=== PATIENT | male | born 1980 | race Asian ===

== ENCOUNTER 2023-07-15 14:55 | Inpatient (IN) | payer OTHER ==
[2023-07-15 17:49] VITALS: BMI 20.9
[2023-07-15] MEDS ORDERED: hydrOXYzine PAMOATE 25 MG CAPSULE (FP) PO PRN (21:16)
[2023-07-15] MEDS ORDERED: MAGNESIUM HYDROX 2400MG/30ML ORAL SUSPENSION 30 ML CUP PO PRN (21:16)
[2023-07-15] MEDS ORDERED: ACETAMINOPHEN 325 MG TABLET (FP) PO PRN (21:16)
[2023-07-15] MEDS ORDERED: P-EPHED 60MG/TRIPROLIDI 2.5MG TABLET PO PRN (21:16)
[2023-07-15] MEDS ORDERED: MAG HYDROX/AL HYDROX/SIMETH 30 ML UNIT-DOSE CUP PO PRN (21:16)
[2023-07-15] MEDS ORDERED: COLLOIDAL OATMEAL 1 BAR EACH TP PRN (21:16)
[2023-07-15] MEDS ORDERED: LOPERAMIDE HCL 2 MG CAPSULE PO PRN (21:16)
[2023-07-15] MEDS ORDERED: NALOXONE HCL (KLOXXADO) 8 MG SPRAY NS PRN (21:16)
[2023-07-15] MEDS ORDERED: AMMONIUM LACTATE 12% LOTION 225 GM BOTTLE TP PRN (21:16)
[2023-07-15] MEDS ORDERED: guaiFENesin 600 MG TABLET.ER (FP) PO PRN (21:16)
[2023-07-15] MEDS ORDERED: POLYETHYLENE GLYCOL (HEALTHYLAX) 3350 17 GM PACKET PO PRN (21:16)
[2023-07-15] MEDS ORDERED: IBUPROFEN 400 MG TABLET (FP) PO PRN (21:16)
[2023-07-15] MEDS ORDERED: BENZOCAINE/MENTHOL (CHLORASEPTIC ) LOZENGE MM PRN (21:16)
[2023-07-15] MEDS ORDERED: BENZONATATE 200 MG CAPSULE PO PRN (21:16)
[2023-07-15] MEDS ORDERED: NALOXONE HCL 0.4 MG/ML VIAL IM PRN (21:16)
[2023-07-15] MEDS ORDERED: MELATONIN 5 MG TABLETS PO SCH (22:00)
[2023-07-15] MEDS ORDERED: MELATONIN 5 MG TABLETS ONE (22:53)
[2023-07-15] MEDS ORDERED: TUBERCULIN PPD 5 TU/0.1ML SYRINGE (IN PATIENT USE ONLY) ID ONE (23:55)
[2023-07-16] MEDS: THIAMINE HCL 100 MG TABLET (FP) PO SCH ×2 (07:16→21:08)
[2023-07-16] MEDS: LIDOCAINE PATCH REMOVAL MC SCH ×2 (07:17→21:09)
[2023-07-16] MEDS ORDERED: LIDOCAINE 5% TOPICAL PATCH TP SCH (10:00)
[2023-07-16] MEDS: PRENATAL VITAMINS W/ FOLIC ACID TABLET (FP) PO SCH (10:45)
[2023-07-16] MEDS ORDERED: methaDONE HCL 10 MG TABLET (FOR DETOX USE ONLY) ONE ×2 (12:00→12:04)
[2023-07-16] MEDS ORDERED: PRENATAL VITAMINS W/ FOLIC ACID TABLET (FP) PO ONE (12:00)
[2023-07-16] MEDS ORDERED: TUBERCULIN PPD 5 TU/0.1ML VIAL ID ONE (12:36)
[2023-07-16 13:52] LABS: HEMATOCRIT 33.8 % (35.4-49); HEMOGLOBIN 10.7 GM/dL (11.7-16.9); MCH 26.7 pg (25.7-33.7); MCHC 31.5 g/dl (32.0-35.9); MEAN CELL VOLUME 84.6 fl (80-96); MEAN PLT VOLUME 7.8 fl (7.5-11.1); PLATELET COUNT 336 10^3/uL (134-434); RBC 3.99 M/mm3 (4.00-5.60); RDW 17.2 % (11.9-15.9)
[2023-07-16 14:17] LABS: POTASSIUM 3.9 mmol/L (3.5-5.1)
[2023-07-16 14:31] LABS: CALCIUM 7.5 mg/dL (8.5-10.1)
[2023-07-16 14:32] LABS: ALBUMIN 2.5 g/dl (3.4-5.0); BLOOD UREA NITROGEN 11.2 mg/dL (7-18)
[2023-07-16 14:35] LABS: BILIRUBIN,TOTAL 0.2 mg/dL (0.2-1)
[2023-07-16 14:39] LABS: CREATININE 0.7 mg/dL (0.55-1.3); TOT PROT 5.7 g/dl (6.4-8.2)
[2023-07-16 15:16] LABS: SYPHILIS W/ RPR CONF NON-REACTIVE (NONREACTIVE)
[2023-07-16] MEDS: QUEtiapine FUMARATE 50 MG TABLET PO SCH (21:09)
[2023-07-16] MEDS: IBUPROFEN 600 MG TABLET (FP) PO PRN (21:12)
[2023-07-17] MEDS: LIDOCAINE 5% TOPICAL PATCH TP SCH (10:02)
[2023-07-17] MEDS: PRENATAL VITAMINS W/ FOLIC ACID TABLET (FP) PO SCH (10:03)
[2023-07-17] MEDS: CALCIUM 500MG/VIT-D 200 UNITS COMBO TABLET (FP) PO SCH (13:00)
[2023-07-17] MEDS: FERROUS SO4 325 MG TABLET (FP) PO SCH (13:00)
[2023-07-17 13:45] LABS: URINE APPEARANCE CLEAR; URINE BILIRUBIN NEGATIVE (NEGATIVE); URINE COLOR YELLOW; URINE GLUCOSE (UA) NEGATIVE (NEGATIVE); URINE KETONE NEGATIVE (NEGATIVE); URINE LEUK ESTERASE NEGATIVE (NEGATIVE); URINE NITRITE NEGATIVE (NEGATIVE); URINE PROTEIN NEGATIVE (NEGATIVE); URINE UROBILINOGEN 0.2 mg/dL (0.2-1.0)
[2023-07-17] MEDS: QUEtiapine FUMARATE 50 MG TABLET PO SCH (21:10)
[2023-07-17] MEDS: LIDOCAINE PATCH REMOVAL MC SCH (21:10)
[2023-07-17] MEDS: THIAMINE HCL 100 MG TABLET (FP) PO SCH (21:10)
[2023-07-18] MEDS: methaDONE 40 MG, methaDONE 10 MG PO SCH (06:12)
[2023-07-18] MEDS: FERROUS SO4 325 MG TABLET (FP) PO SCH (10:00)
[2023-07-18] MEDS: IBUPROFEN 600 MG TABLET (FP) PO PRN (10:00)
[2023-07-18] MEDS: LIDOCAINE 5% TOPICAL PATCH TP SCH (10:01)
[2023-07-18] MEDS: CALCIUM 500MG/VIT-D 200 UNITS COMBO TABLET (FP) PO SCH (10:01)
[2023-07-18] MEDS: PRENATAL VITAMINS W/ FOLIC ACID TABLET (FP) PO SCH (10:01)
[2023-07-18] MEDS: NICOTINE POLACRILEX 2 MG GUM BUC PRN (10:50)
[2023-07-18] MEDS: NICOTINE 14 MG/24 HOURS TOPICAL PATCH TD SCH (12:13)
[2023-07-18] MEDS: LIDOCAINE PATCH REMOVAL MC SCH (21:31)
[2023-07-18] MEDS: THIAMINE HCL 100 MG TABLET (FP) PO SCH (21:33)
[2023-07-18] MEDS: METHYL SALICYLATE/MENTHOL OINT 30 GM TUBE TP PRN (21:34)
[2023-07-18] MEDS: QUEtiapine FUMARATE 100 MG TABLET (FP) PO SCH (21:34)
[2023-07-19] MEDS: methaDONE 40 MG, methaDONE 10 MG PO SCH (06:47)
[2023-07-19] MEDS: CALCIUM 500MG/VIT-D 200 UNITS COMBO TABLET (FP) PO SCH (10:06)
[2023-07-19] MEDS: FERROUS SO4 325 MG TABLET (FP) PO SCH (10:06)
[2023-07-19] MEDS: PRENATAL VITAMINS W/ FOLIC ACID TABLET (FP) PO SCH (10:06)
[2023-07-19] MEDS: IBUPROFEN 600 MG TABLET (FP) PO PRN ×2 (10:06→21:11)
[2023-07-19] MEDS: NICOTINE 14 MG/24 HOURS TOPICAL PATCH TD SCH (10:07)
[2023-07-19] MEDS: LIDOCAINE 5% TOPICAL PATCH TP SCH (10:08)
[2023-07-19] MEDS: THIAMINE HCL 100 MG TABLET (FP) PO SCH (21:11)
[2023-07-19] MEDS: QUEtiapine FUMARATE 100 MG TABLET (FP) PO SCH (21:11)
[2023-07-19] MEDS: LIDOCAINE PATCH REMOVAL MC SCH (21:12)
[2023-07-20] MEDS: methaDONE 40 MG, methaDONE 10 MG PO SCH (06:37)
[2023-07-20] MEDS: METHYL SALICYLATE/MENTHOL OINT 30 GM TUBE TP PRN (06:40)
[2023-07-20] MEDS: NICOTINE POLACRILEX 2 MG GUM BUC PRN (06:40)
[2023-07-20] MEDS: LIDOCAINE 5% TOPICAL PATCH TP SCH (09:34)
[2023-07-20] MEDS: NICOTINE 14 MG/24 HOURS TOPICAL PATCH TD SCH (09:34)
[2023-07-20] MEDS: FERROUS SO4 325 MG TABLET (FP) PO SCH (09:35)
[2023-07-20] MEDS: PRENATAL VITAMINS W/ FOLIC ACID TABLET (FP) PO SCH (09:35)
[2023-07-20] MEDS: CALCIUM 500MG/VIT-D 200 UNITS COMBO TABLET (FP) PO SCH (09:35)
[2023-07-20] MEDS: THIAMINE HCL 100 MG TABLET (FP) PO SCH (21:20)
[2023-07-20] MEDS: QUEtiapine FUMARATE 100 MG TABLET (FP) PO SCH (21:20)
[2023-07-20] MEDS: LIDOCAINE PATCH REMOVAL MC SCH (21:21)
[2023-07-21] MEDS: methaDONE 40 MG, methaDONE 10 MG PO SCH (06:53)
[2023-07-21] MEDS: LIDOCAINE 5% TOPICAL PATCH TP SCH (09:46)
[2023-07-21] MEDS: PRENATAL VITAMINS W/ FOLIC ACID TABLET (FP) PO SCH (09:46)
[2023-07-21] MEDS: CALCIUM 500MG/VIT-D 200 UNITS COMBO TABLET (FP) PO SCH (09:47)
[2023-07-21] MEDS: NICOTINE 14 MG/24 HOURS TOPICAL PATCH TD SCH (09:47)
[2023-07-21] MEDS: FERROUS SO4 325 MG TABLET (FP) PO SCH (09:47)
[2023-07-21] MEDS: LIDOCAINE PATCH REMOVAL MC SCH (21:22)
[2023-07-21] MEDS: THIAMINE HCL 100 MG TABLET (FP) PO SCH (21:22)
[2023-07-21] MEDS: QUEtiapine FUMARATE 100 MG TABLET (FP) PO SCH (21:22)
[2023-07-21] MEDS: BACLOFEN 10 MG TABLET (FP) PO SCH (21:23)
[2023-07-22] MEDS ORDERED: methaDONE HCL 40 MG DISPERSABLE TABLET PO SCH (06:00)
[2023-07-22] MEDS: methaDONE 40 MG, methaDONE 20 MG PO SCH (06:31)
[2023-07-22] MEDS: FERROUS SO4 325 MG TABLET (FP) PO SCH (09:52)
[2023-07-22] MEDS: LIDOCAINE 5% TOPICAL PATCH TP SCH (09:52)
[2023-07-22] MEDS: BACLOFEN 10 MG TABLET (FP) PO SCH ×2 (09:53→21:20)
[2023-07-22] MEDS: NICOTINE 14 MG/24 HOURS TOPICAL PATCH TD SCH (09:53)
[2023-07-22] MEDS: PRENATAL VITAMINS W/ FOLIC ACID TABLET (FP) PO SCH (09:53)
[2023-07-22] MEDS: CALCIUM 500MG/VIT-D 200 UNITS COMBO TABLET (FP) PO SCH (09:53)
[2023-07-22] MEDS: QUEtiapine FUMARATE 100 MG TABLET (FP) PO SCH (21:34)
[2023-07-22] MEDS: THIAMINE HCL 100 MG TABLET (FP) PO SCH (21:34)
[2023-07-22] MEDS: LIDOCAINE PATCH REMOVAL MC SCH (21:35)
[2023-07-22] MEDS: MIRTAZAPINE 15 MG TABLET (FP) PO SCH (21:35)
[2023-07-22] MEDS: METHYL SALICYLATE/MENTHOL OINT 30 GM TUBE TP PRN (21:36)
[2023-07-23] MEDS: methaDONE 40 MG, methaDONE 20 MG PO SCH (07:23)
[2023-07-23] MEDS: FERROUS SO4 325 MG TABLET (FP) PO SCH (09:49)
[2023-07-23] MEDS: LIDOCAINE 5% TOPICAL PATCH TP SCH (09:49)
[2023-07-23] MEDS: BACLOFEN 10 MG TABLET (FP) PO SCH ×2 (09:49→21:38)
[2023-07-23] MEDS: CALCIUM 500MG/VIT-D 200 UNITS COMBO TABLET (FP) PO SCH (09:50)
[2023-07-23] MEDS: PRENATAL VITAMINS W/ FOLIC ACID TABLET (FP) PO SCH (09:50)
[2023-07-23] MEDS: NICOTINE 14 MG/24 HOURS TOPICAL PATCH TD SCH (09:50)
[2023-07-23] MEDS: QUEtiapine FUMARATE 100 MG TABLET (FP) PO SCH (21:38)
[2023-07-23] MEDS: MIRTAZAPINE 15 MG TABLET (FP) PO SCH (21:38)
[2023-07-23] MEDS: LIDOCAINE PATCH REMOVAL MC SCH (21:38)
[2023-07-23] MEDS: THIAMINE HCL 100 MG TABLET (FP) PO SCH (21:38)
[2023-07-23] MEDS: METHYL SALICYLATE/MENTHOL OINT 30 GM TUBE TP PRN (21:39)
[2023-07-24] MEDS: methaDONE 40 MG, methaDONE 20 MG PO SCH (06:34)
[2023-07-24 06:39] VITALS: BP 111/76; PULSE 91; RESP 20; TEMP 97.6
== END 2023-07-24 08:58 | disposition home or self-care (01) | DRG 772 ==
LOC: YASAS 14:55 → Y3E 07-16 11:20
PROVIDERS: ADMIT Allergy & Immunology; ATTEND Psychiatry & Neurology Pain Medicine
PROC: HZ42ZZZ Group Counseling for Substance Abuse Treatment, Cognitive-Behavioral (ICD-10-PCS; principal; 2023-07-16)
DX: F11.20 Opioid dependence, uncomplicated (principal); F14.20 Cocaine dependence, uncomplicated; F17.210 Nicotine dependence, cigarettes, uncomplicated; F19.282 Other psychoactive substance dependence with psychoactive substance-induced sleep disorder; F19.24 Other psychoactive substance dependence with psychoactive substance-induced mood disorder; D64.9 Anemia, unspecified; E83.51 Hypocalcemia; L84 Corns and callosities; Z86.69 Personal history of other diseases of the nervous system and sense organs; Z28.310 Unvaccinated for COVID-19; Z28.9 Immunization not carried out for unspecified reason
CPT/HCPCS: 36415; 80053; 81003; 82962; 85027; 86780; 86803; 87522; 87635; 87811; 93005; 93010; J0475